=== PATIENT | male | born 1985 | race Caucasian/White ===

== ENCOUNTER 2022-03-22 01:24 | Emergency (ER) | payer SELFPAY ==
[2022-03-22] VITALS (8 sets, daily range): BP systolic 106–145; BP diastolic 69–93; PULSE 99–110; RESP 20–24; TEMP 36.1–36.3; O2SAT 83–94
--- NOTE | ~2022-03-22 | CT_ITS ---
EXAMINATION: CT brain wo con INDICATION: Headache COMPARISON: None TECHNIQUE: Standard unenhanced head CT. The dose-length product (DLP) was 681.00 mGy-cm. The mA was a djusted according to patient size. Iterative reconstruction technique was employed. FINDINGS: There is no intracranial hemorrhage, acute infarction, or abnormal mass lesion. The ventric les are normal. There is no abnormal mass effect or midline shift. The triplett-white matter differentiat ion is normal. The basal cisterns are patent. The orbits are normal. There is mild mucosal thickening of the paranasal sinuses. IMPRESSION: 1. No acute intracranial abnormality. Reviewed, dictated and finalized at location A. ER PRICER
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
--- NOTE | 2022-03-22 01:50 | PC.NURSE ---
RN again attempts to place O2 via NC onto pt. Pt still refuses any O2 or an IV. RN attempts to educate pt on importance of O2 and vascular access and pt still refuses at this time. RN informs ERP. RN has pt sign a paper refusal of services with IV and O2 listed. Pt signs voluntarily. See paper refusal.
--- NOTE | 2022-03-22 02:50 | PC.NURSE ---
Pt has family out in the waiting room. Pt states that he does not want any visitors at this time. RN reports information to pt's family who leave phone numbers for pt when he is DC. Ronaldo [phone] and Evita [phone].
--- NOTE | 2022-03-22 04:14 | PC.NURSE ---
Finger probe fell off pt's finger. RN reapplies. Pt states he is thirsty and asks for a cup of ice, and a cup of water. Pt has no other complaints at this time. Ice, water, and call light are all within pt's reach.
== END 2022-03-22 05:20 | disposition home or self-care (01) ==
PROVIDERS: Emergency Provider Emergency Medicine
DX: T40.1X1A Poisoning by heroin, accidental (unintentional), initial encounter (principal)
CPT/HCPCS: 70450; 99284